=== PATIENT | female | born 1990 | race American Indian/Alaskan Native ===

== ENCOUNTER 2019-03-13 16:37 | Outpatient (CLI) | payer MEDICAID ==
[2019-03-13] MEDS ORDERED: LACTATED RINGERS 500 ML IV ONE (17:00)
[2019-03-13] MEDS ORDERED: ACETAMINOPHEN 500 MG TAB PO STA (17:58)
[2019-03-13 19:03] LABS: Bilirubin,Urine NEG (Negative); Blood,Urine NEG (Negative); Color,Urine Yellow (Yellow); Mucus,Urine 1+ /HPF; Urobilinogen,Urine < 2.0 mg/dL (<2.0)
[2019-03-13] MEDS ORDERED: LACTATED RINGERS 1,000 ML ONE (19:53)
[2019-03-13] MEDS ORDERED: LACTATED RINGERS 1,000 ML IV SCH (20:00)
[2019-03-13] MEDS ORDERED: TERBUTALINE 1 MG/1 ML INJ SUB-Q SCH (20:00)
[2019-03-13 20:05] VITALS: BP 104/63
--- NOTE | 2019-03-13 20:46 | Ultrasound Report ---
US OB limited INDICATION: labor. Assess cervical length. COMPARISON: None available. FINDINGS: A single live intrauterine is seen in breech presentation with a heart rate of 171 bpm. The placenta is located posteriorly and is grade 0. The placenta is free of the cervical os. The cervica l length is 3.4 cm. IMPRESSION: 1. Single live intrauterine as above. 2. Cervical length of 3.4 cm. Signer Name: Froilan Colin MD Signed: 03/13/2019 8:42 PM Workstation Name: [id number]
== END 2019-03-13 21:44 | disposition home or self-care (01) ==
LOC: TRG 16:37
PROVIDERS: ATTEND Obstetrics & Gynecology
DX: O26.892 Other specified pregnancy related conditions, second trimester (principal); R10.9 Unspecified abdominal pain; O60.02 Preterm labor without delivery, second trimester; O32.1XX0 Maternal care for breech presentation, not applicable or unspecified; Z3A.24 24 weeks gestation of pregnancy
CPT/HCPCS: 76815; 81001; 96360; 96361; 96372; J3105; J7120